=== PATIENT | male | born 1965 | race Caucasian/White ===

== ENCOUNTER 2022-01-19 10:53 | Emergency (ER) | payer OTHER, SELFPAY ==
[2022-01-19] VITALS (22 sets, daily range): BP systolic 117–145; BP diastolic 81–100; PULSE 84–103; RESP 8–32; TEMP 36.8; O2SAT 93–99
--- NOTE | ~2022-01-19 | XR_ITS ---
EXAMINATION: XR chest 2V DATE: 01/19/2022 12:52 INDICATION: Left chest pain. TECHNIQUE: Frontal and lateral views of the chest were obtained. COMPARISON: None. FINDINGS: A calcified left lung nodule is consistent with old granulomas disc disease. There is mild atelectasis in left lower lung zone. No pleural effusion or pneumothorax. The heart size is normal. T here is mild pectus excavatum. IMPRESSION: 1. Mild atelectasis in left lower lung zone. Reviewed, dictated and finalized at location A.
--- NOTE | 2022-01-19 10:57 | ED.CHESTPAIN ---
HPI - Chest Pain General Chief Complaint: Chest Pain Stated Complaint: chest pain Time Seen by Provider: 01/19/22 10:57 Source: patient Mode of arrival: ambulatory History of Present Illness HPI narrative: 56-year-old male with a history of prostate cancer status post radical prostatectomy presents to the ER with -- left chest wall pain which is sharp and stabbing. This Pain comes on without any precipitating factor. No cough or sputum production. No shortness of breath. No fever. -- Numbness of the 1st 1 and 2nd finger. MD complaint: chest pain Onset (ago): week(s) Timing of current episode: episodic Prior episodes: No Onset: during rest Pain location: left chest Severity: moderate Quality: sharp Relieving factors: nothing Exacerbating factors: nothing Treatment prior to arrival: none Risk Factors Coronary artery disease risk factors: none Thoracic aortic dissection risk factors: none Related Data Home Medications Medication Instructions Recorded Confirmed meloxicam 7.5 mg tablet 7.5 mg PO DAILY 05/13/19 01/19/22 Allergies Allergy/AdvReac Type Severity Reaction Status Date / Time No Known Allergies Allergy Verified 10/09/19 09:59 Review of Systems Review of Systems: All systems reviewed & are unremarkable except as noted in HPI and below Constitutional: Constitutional: Reports as per HPI and Reports no additional constitutional complaints Eyes: Eyes: Reports as per HPI and Reports no additional eye complaints ENT: Reports system reviewed and no additional complaints, except as documented and Reports as per HPI Cardiovascular: Cardiovascular: Reports as per HPI, Reports no additional cardiovascular complaints and Reports chest pain Comments: Sharp left-sided chest pain Respiratory: Respiratory: Reports as per HPI and Reports no additional respiratory complaints Gastrointestinal: Gastrointestinal: Reports as per HPI and Reports no additional gastrointestinal complaints Genitourinary: Genitourinary: Reports no additional male genitourinary complaints and Reports as per HPI Musculoskeletal: Musculoskeletal: Reports no additional musculoskeletal complaints and Reports as per HPI Integumentary/Breasts: Skin/Breast: Reports system reviewed and no additional complaints, except as docu and Reports as per HPI Neurologic: Reports system reviewed and no additional complaints, except as documented and Reports as per HPI Psychiatric: Psychiatric: Reports no additional psychiatric complaints and Reports as per HPI Endocrine: Endocrine: Reports no additional endocrine complaints and Reports as per HPI Hematologic/Lymphatic: Hematologic/Lymphatic: Reports no additional hematologic/lymphatic complaints and Reports as per HPI Allergic/Immunologic: Allergic/Immunologic: Reports no additional allergic/immunologic complaints and Reports as per [facility] Past Medical History Medical History (Updated 01/19/22 @ 13:31 by Chuck Abdalla MD) Prostate cancer Surgical History Surgical History (System 10/09/19 @ 09:59 by Leisa John) H/O radical prostatectomy Exam Const: General: healthy appearing and no acute distress Nutritional Appearance: well nourished Orientation/consciousness: patient oriented x3 Limitations: no limitations HENMT: Head: normal to inspection Ears: external ears normal General nose exam: Normal external nose present Face and sinus: normal facial exam Mouth: Yes Normal oral and palatal mucosa present Throat: posterior oropharynx normal Eyes: Conjunctivae: conjunctivae normal Pupils: Equal, round and reactive pupils present EOM: EOMs intact bilaterally Direct Ophthalmoscopy: no photophobia Neck: Neck: normal visual inspection, no lymphadenopathy and no meningeal signs Chest: Chest palpation & inspection: normal inspection of the chest Other: unable to elicit any focal tenderness. Resp: Effort & Inspection: normal respiratory effort Auscultation: clear to a
--- NOTE | 2022-01-19 11:08 | ECG_ITS ---
Measurements Intervals [place] Rate: 93 P: 39 [place]: 158 QRS: -21 QRSD: 91 T: 19 QT: 338 QTc: 422 Interpretive Statements SINUS RHYTHM BORDERLINE R WAVE PROGRESSION, ANTERIOR LEADS BASELINE ARTIFACT- II, III, AVF BORDERLINE ECG Electronically Signed On 01-19-2022 22:51:26 CDT by Derick Boudreaux D.O.
[2022-01-19 11:27] LABS: Basophils Absolute Auto 0.04 K/mm3 (0.00-0.10); Basophils Percent Auto 0.4 % (0.0-1.0); Eosinophils Absolute Auto 0.28 K/mm3 (0.02-0.50); Eosinophils Percent Auto 2.5 % (1.0-6.0); Hematocrit 44.3 % (40.0-54.0); Immature Granulocyte Absolute 0.05 K/mm3 (0.00-0.00); Immature Granulocyte Percent A 0.4 % (0.0-0.0); Lymphocytes Absolute Auto 1.76 K/mm3 (1.10-4.50); Lymphocytes Percent Auto 15.8 % (18.0-42.0); Mean Corpuscular HGB Conc 33.9 g/dL (32.0-36.0); Mean Corpuscular Hemoglobin 30.1 pg (27.0-31.0); Mean Platelet Volume 9.7 fl (8.7-11.0); Monocytes Absolute Auto 0.72 K/mm3 (0.10-0.90); Monocytes Percent Auto 6.5 % (2.0-11.0); Neutrophils Absolute Auto 8.3 K/mm3 (1.7-7.2); Neutrophils Percent Auto 74.4 % (50.0-70.0); Platelet Count Result 214 K/mm3 (150-420); Red Blood Count 4.98 M/mm3 (4.70-6.10); Red Cell Distribution Width 12.7 % (11.6-14.4); White Blood Count 11.1 K/mm3 (4.8-10.8)
[2022-01-19 11:40] LABS: D Dimer 0.27 mg/L (0.19-0.50)
[2022-01-19 11:43] LABS: Partial Thromboplastin Time 27.3 SEC (23.90-30.70); Prothrombin Time 10.9 Seconds (9.50-12.10)
[2022-01-19 11:47] LABS: Alanine Aminotransferase 17 U/L (16-63); Albumin Level 3.8 g/dL (3.4-5.0); Alkaline Phosphatase 90 U/L (46-116); Anion Gap 9 mmol/L (8-16); Aspartate Amino Transferase 25 U/L (15-37); Bilirubin,Total 0.6 mg/dL (0.00-1.00); Blood Urea Nitrogen 19 mg/dL (7-18); Carbon Dioxide 25 mmol/L (21-32); Chloride 107 mmol/L (98-108); Estimated CRCL calculation 73 ml/min; Estimated Glomerular Filt Rate > 60; Glucose 101 mg/dL (70-99); Osmolality Calculated 294 mOsm/kg (285-295); Potassium 3.9 mmol/L (3.5-5.1); Sodium 141 mmol/L (136-145)
[2022-01-19 11:48] LABS: Troponin I 6.7 ng/L (0.00-60.4)
[2022-01-19 11:56] LABS: Lactic Acid Reflex 0.9 mmol/L (0.4-2.0)
--- NOTE | 2022-01-19 11:57 | PC.NURSE ---
PT IS SITTING ON STRETCHER TALKING WITH . NAD NOTED. VSS PER MONITOR. WATER PROVIDED. PT DENIES ANY NEEDS OR COMPLAINTS. PT IS AWAITING LAB RESULTS AT THIS TIME. WILL CONTINUE TO MONITOR.
--- NOTE | 2022-01-19 13:17 | PC.NURSE ---
PT HAS RETURNED FROM XRAY, WATCHING TV WITH AT BEDSIDE. NAD NOTED. PT DENIES ANY NEEDS OR COMPLAINTS. WILL CONTINUE TO MONITOR.
== END 2022-01-19 13:40 | disposition home or self-care (01) ==
PROVIDERS: Emergency Provider Internal Medicine Critical Care Medicine; PCP Family Medicine
DX: R07.89 Other chest pain (principal); Z85.46 Personal history of malignant neoplasm of prostate
CPT/HCPCS: 36415; 71046; 80053; 83605; 84484; 85025; 85380; 85610; 85730; 93005; 99284